=== PATIENT | male | born 1950 | race Two or more races ===

== ENCOUNTER 2022-05-27 09:33 | Emergency (ER) | payer OTHER ==
[~2022-05-27] VITALS: Ht 177.8 cm; Wt 96.2 kg
[2022-05-27] MEDS ORDERED: KETO10TA2 PO (11:27)
[2022-05-27] MEDS ORDERED: MUPIROCIN1 G1 TOP (11:27)
== END 2022-05-27 11:47 | disposition home or self-care (01) ==
LOC: ER 09:33
DX: S40.812A Abrasion of left upper arm, initial encounter (principal); S60.419A Abrasion of unspecified finger, initial encounter; S80.812A Abrasion, left lower leg, initial encounter; S90.812A Abrasion, left foot, initial encounter; W01.0XXA Fall on same level from slipping, tripping and stumbling without subsequent striking against object, initial encounter; Y93.9 Activity, unspecified; Y92.480 Sidewalk as the place of occurrence of the external cause; I10 Essential (primary) hypertension